=== PATIENT | female | born 1990 | race Caucasian/White ===

== ENCOUNTER 2022-08-06 04:08 | Day surgery (SDC) | payer OTHER ==
[2022-08-05 08:39] VITALS: BMI 20.5
[~2022-08-06 04:08] MED LIST: BUPIVACAINE HCL/PF 0.5% (5MG/ML) 10 ML VIAL IJ ONE; LIDOCAINE 1%/EPI 1:100000 (20 ML MULTI DOSE VIAL) IJ ONE
[2022-08-06] MEDS ORDERED: MICROFIBRILLAR COLLAGEN (AVITENE) 1 EACH POWD.PACK TP ONE (11:00)
[2022-08-06] MEDS ORDERED: PROPOFOL 20 ML ONE ×2 (11:46→12:54)
[2022-08-06] MEDS ORDERED: MIDAZOLAM HCL 2 MG/2 ML SINGLE DOSE VIAL ONE (11:48)
[2022-08-06] MEDS ORDERED: PROPOFOL 60 ML ONE (11:53)
[2022-08-06] MEDS ORDERED: ceFAZolin 2 GRAM PREMIX BAG IVPB ONE (12:41)
[2022-08-06] MEDS ORDERED: ONDANSETRON 4 MG/2 ML VIAL ONE (13:06)
[2022-08-06] MEDS ORDERED: ceFAZolin SODIUM 1 GM VIAL ONE ×2 (13:06)
[2022-08-06] MEDS ORDERED: DEXAMETHASONE SOD PHOSPHATE 4 MG/1 ML VIAL ONE (13:06)
[2022-08-06] MEDS ORDERED: LIDOCAINE 1%/EPI 1:100000 (20 ML MULTI DOSE VIAL) IJ ONE ×2 (13:07)
[2022-08-06] MEDS ORDERED: BUPIVACAINE HCL/PF 0.5% (5MG/ML) 10 ML VIAL IJ ONE ×2 (13:07)
[2022-08-06] MEDS ORDERED: MICROFIBRILLAR COLLAGEN 1 GM EACH TP ONE (14:00)
[2022-08-06] MEDS ORDERED: LACTATED RINGERS SOLUTION 1,000 ML IV SCH ×2 (14:15→14:30)
[2022-08-06] MEDS ORDERED: oxyCODONE HCL 5 MG TABLET PO PRN (14:26)
[2022-08-06] MEDS ORDERED: ONDANSETRON 4 MG/2 ML VIAL IVPUSH PRN (14:26)
[2022-08-06] MEDS ORDERED: ACETAMINOPHEN 1000 MG/100 ML BAG IVPB ONE (14:27)
[2022-08-06] MEDS ORDERED: ACETAMINOPHEN INJECTION 100 ML IVPB ONE (14:31)
[2022-08-06 17:09] VITALS: RESP 20
[2022-08-06 19:41] VITALS: BP 105/72; PULSE 103; TEMP 98
== END 2022-08-06 17:40 | disposition home or self-care (01) ==
LOC: JASU-SURG 04:08
PROVIDERS: ATTEND Surgery
PROC: 0GTH0ZZ Resection of Right Thyroid Gland Lobe, Open Approach (ICD-10-PCS; principal; 2022-08-06 13:06)
DX: C73 Malignant neoplasm of thyroid gland (principal)
CPT/HCPCS: 81025; 88307-TC; 94760